=== PATIENT | female | born 1945 | race Caucasian/White ===

== ENCOUNTER 2021-01-23 09:34 | Emergency (ER) | payer MEDICARE ==
[~2021-01-23] VITALS: Ht 165.1 cm; Wt 100.0 kg
[~2021-01-23 09:34] MED LIST: (None)3.5 GM OP; ALLEGRA180 M1 PO; ALLERGY RELIEF180 MG PO; AZO-CRANBERY450 MG PO; COREG6.25 MG PO; FEMARA2.5 MG OR; FLONASE NASAL50 MCG; FOSAMAX70 MG PO; GABAPENTIN100 MG PO; GENTAMICIN15 ML/BTL OP; L-LYSINE500 M2 PO; LISINOPRIL10 MG PO; LORTAB 7.5 PO; MECLIZINE25 MG PO; NASONEX50 MCG/AC; NEURONTIN100 MG PO; OMEPRAZOLE20 MG PO; OSCAL 500/1 TAB PO; PRAVASTATIN40 MG PO; PROZAC40 MG PO; SOYA LECITHN1200 MG PO; ZYRTEC10 MG PO
[2021-01-23 10:11] LABS: HEMATOCRIT 38.8 % (37.0-47.0); HEMOGLOBIN 12.3 g/dl (12.0-16.0); IMMATURE GRANULOCYTES 0.2 % (0.0-5.0); MEAN CELL VOLUME 87.2 fL CALC (80.0-100.0); MEAN CORPUSCULAR HGB 27.6 pG CALC (26.0-32.0); MEAN CORPUSCULAR HGB CONC 31.7 g/dL CAL (32.0-36.0); NEUT# 6.38 thou/uL (2.00-7.15); RED BLOOD COUNT 4.45 mill/uL (4.20-5.60); RED CELL DISTRI WIDTH 13.7 % (11.5-15.5)
[2021-01-23 10:25] LABS: ALKALINE PHOSPHATASE 81 u/l (38-126); ANION GAP 13 (6-22 (CALC)); BUN 10 mg/dL (8-23); BUN/CREATININE RATIO 11 (12-20 (CALC)); CARBON DIOXIDE 25 mmol/l (22-30); CHLORIDE 100 mmol/l (95-108); CREATININE 0.9 mg/dL (0.5-1.0); GFR > 60 ML/MIN (>=60 (CALC)); GFR FOR AFR.AMER. > 60 ML/MIN (>=60 (CALC)); POTASSIUM 3.7 mmol/l (3.5-5.1); SGOT/AST 27 u/l (9-36); SODIUM 135 mmol/l (137-146); TOTAL PROTEIN 7.3 g/dL (6.3-8.2)
[2021-01-23 11:53] VITALS: BP 128/71
== END 2021-01-23 11:53 | disposition home or self-care (01) ==
LOC: ED 09:34
PROVIDERS: Family Medicine
DX: R42 Dizziness and giddiness (principal); I10 Essential (primary) hypertension; K21.9 Gastro-esophageal reflux disease without esophagitis; Z20.822 Contact with and (suspected) exposure to COVID-19